=== PATIENT | female | born 1985 | race Caucasian/White ===

== ENCOUNTER 2020-06-09 23:12 | Emergency (ER) | payer MEDICAID ==
[~2020-06-09] VITALS: Ht 165.1 cm; Wt 81.8 kg
[~2020-06-09 23:12] MED LIST: NOCURR
[2020-06-09] MEDS ORDERED: CETI-450 PO (23:21)
[2020-06-09] MEDS ORDERED: DIPH12.55 PO (23:21)
[2020-06-10 00:24] VITALS: BP 132/84
[2020-06-10] MEDS ORDERED: DiphenhydrAMINE HCL 25 MG CAPSULE PO ONE (00:30)
[2020-06-10] MEDS ORDERED: FAMOTIDINE 20 MG TABLET PO ONE (00:30)
== END 2020-06-10 01:02 | disposition home or self-care (01) ==
LOC: EMS 23:21
DX: L50.9 Urticaria, unspecified (principal)
CPT/HCPCS: 99283

== ENCOUNTER 2024-02-07 10:59 | Emergency (ER) | payer MEDICAID, OTHER, SELFPAY ==
[~2024-02-07] VITALS: Ht 160 cm; Wt 63.6 kg
[~2024-02-07 10:59] MED LIST changes: +CETI-450 PO; +DIPH12.55 PO
[2024-02-07 11:05] VITALS: TEMP 98
[2024-02-07] MEDS: ACETAMINOPHEN 325 MG TABLET PO ONE (12:43)
[2024-02-07] MEDS: PERTUSS(ACELL),DIPH,TET/PF 0.5 ML SYRINGE [ADULT] IM. ONE (12:44)
[2024-02-07 13:00] VITALS: BP 130/60; PULSE 60; RESP 14; O2SAT 98
== END 2024-02-07 13:18 | disposition home or self-care (01) ==
LOC: EMS 10:59
DX: S61.412A Laceration without foreign body of left hand, initial encounter (principal); W26.8XXA Contact with other sharp object(s), not elsewhere classified, initial encounter; Y93.89 Activity, other specified; Y92.89 Other specified places as the place of occurrence of the external cause; Y99.0 Civilian activity done for income or pay
CPT/HCPCS: 12002; 90471; 90715; 99283